=== PATIENT | female | born 1990 | race Asian ===

== ENCOUNTER 2020-06-30 21:23 | Emergency (ER) | payer MEDICAID ==
[~2020-06-30] VITALS: Ht 165.1 cm; Wt 85.4 kg
[~2020-06-30 21:23] MED LIST: DOCU-131 PO; FERR325T18 PO; IBUP-1222 PO; PREN1TAB60 PO
[2020-06-30 21:47] VITALS: BP 152/92
[2020-06-30] MEDS ORDERED: SODIUM CHLORIDE FLUSH 10ML SYR IVF ONE (22:00)
[2020-06-30 22:24] LABS: MICROSCOPIC AUTO
[2020-06-30 23:06] LABS: BASOPHILS % (AUTO) 1 % (0-1); EOSINOPHILS % (AUTO) 1 % (1-7); LYMPHOCYTES % (AUTO) 13 % (22-44); MEAN CORPUSCULAR HEMOGLOBIN 30.1 pg (27.0-34.8); MEAN CORPUSCULAR HGB CONC 33.8 g/dL (32.4-35.8); MEAN PLATELET VOLUME 7.6 fL (7.4-10.4); MONOCYTES % (AUTO) 5 % (2-9); NEUTROPHILS % (AUTO) 80 % (42-75); PLATELET COUNT 349 x10^3/uL (130-400); RED BLOOD COUNT 4.81 x10^6/uL (3.82-5.3); RED CELL DISTRIBUTION WIDTH 12.5 % (9.6-15.2)
[2020-06-30 23:14] LABS: ALANINE AMINOTRANSFERASE 21 U/L (12-78); ALBUMIN 4.1 g/dL (3.4-5.0); ANION GAP 7 mmol/L (5-15); CALCIUM 9.3 mg/dL (8.5-10.1); CHLORIDE 106 mmol/L (98-107); CREATININE 1.25 mg/dL (0.55-1.02)
[2020-06-30 23:18] LABS: ALKALINE PHOSPHATASE 54 U/L (45-117); BILIRUBIN,TOTAL 0.5 mg/dL (0.2-1.0); TOTAL PROTEIN 7.8 g/dL (6.4-8.2)
[2020-06-30 23:38] LABS: MD NO
--- NOTE | 2020-07-01 00:09 | NUR ---
ATTACHE: PT. TO ROOM FROM LOBBY AT THIS TIME. STEADY GAIT.
--- NOTE | 2020-07-01 00:15 | NUR ---
30 year old female to ED w Left flank pain and nausea. She denies urinary symptoms, but states she had a kidney infection in the past. She also complains of weakness and loss of appetite.
== END 2020-07-01 01:54 | disposition home or self-care (01) ==
LOC: ED 07-01 01:30
DX: N13.2 Hydronephrosis with renal and ureteral calculous obstruction (principal); R31.9 Hematuria, unspecified
CPT/HCPCS: 36415; 74176; 80053; 81001; 84703; 85025; 99284